=== PATIENT | male | born 1945 | race Caucasian/White ===

== ENCOUNTER 2016-10-23 13:32 | Inpatient (IN) | payer OTHER, MEDICARE ==
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
[2016-10-23] MEDS ORDERED: ASPIRIN 81 MG CHEWABLE TABLETS PO ONE (14:05)
[2016-10-23 14:29] LABS: BASOPHIL 0.7 % (0-2.0); MCH 31.9 pg (25.7-33.7); MCHC 33.1 g/dl (32.0-35.9); MEAN CELL VOLUME 96.5 fl (80-96); MEAN PLT VOLUME 8.4 fl (7.5-11.1); NEUTROPHILS 74.2 % (42.8-82.8); PLATELET COUNT 252 K/MM3 (134-434); RDW 13.3 % (11.9-15.9); WHITE BLOOD COUNT 17.9 K/mm3 (4.0-10.0)
[2016-10-23 14:42] LABS: INR 1.15 (0.82-1.09); PROTHROMBIN TIME (PATIENT) 12.7 SEC (9.98-11.88)
[2016-10-23] MEDS ORDERED: ASPIRIN 81 MG CHEWABLE TABLETS ONE (14:52)
[2016-10-23 15:02] LABS: ALBUMIN 3.9 g/dl (3.4-5.0); ANION GAP 13 (8-16); CALCIUM 9.4 mg/dL (8.5-10.1); CHOLESTEROL 148 mg/dL (50-200); CO2 23 mmol/L (21-32); CREATININE 1.9 mg/dL (0.7-1.3); MAGNESIUM 1.8 mg/dL (1.8-2.4); SGOT/AST 22 U/L (15-37); SGPT/ALT 22 U/L (12-78); TOT PROT 7.5 g/dl (6.4-8.2)
[2016-10-23 15:03] LABS: ALK PHOS 87 U/L (45-117); TROPONIN I < 0.02 ng/ml (0.00-0.05)
[2016-10-23 15:09] LABS: GLUCOSE,RANDOM 305 mg/dL (74-106)
[2016-10-23 15:19] LABS: LDL CHOLESTEROL (ONLY SJRH) 82 mg/dL (5-100)
[2016-10-23] MEDS ORDERED: ACETAMINOPHEN 1000 MG/100 ML VIAL (NON FORMULARY) IVPB ONE (16:09)
[2016-10-23 16:23] LABS: URINE APPEARANCE CLOUDY; URINE BILIRUBIN NEGATIVE (NEGATIVE); URINE COLOR YELLOW; URINE GLUCOSE (UA) 2+ (NEGATIVE); URINE KETONE NEGATIVE (NEGATIVE); URINE NITRITE NEGATIVE (NEGATIVE); URINE UROBILINOGEN NEGATIVE E.U./dl (0.2-1.0)
[2016-10-23 16:56] LABS: URINE BLOOD 1+ (NEGATIVE); URINE LEUK ESTERASE TRACE (NEGATIVE); URINE PROTEIN 3+ (NEGATIVE)
[2016-10-23 16:57] LABS: URINE BACTERIA RARE /hpf (NONE SEEN); URINE HYALINE CAST 8 /lpf; URINE MUCUS FEW; URINE RBC 2 /hpf (0-3); URINE WBC 22 /hpf (3-5)
[2016-10-23] MEDS ORDERED: ACETAMINOPHEN INJECTION 100 ML IVPB ONE (18:05)
[2016-10-23] MEDS ORDERED: LIDOCAINE HCL/PF 1% SDV 5ML VIAL ONE (18:33)
[2016-10-23] MEDS ORDERED: CEFTRIAXONE 2 GM in DEXTROSE 5%-WATER - 100 ML IVPB ONE (19:12)
[2016-10-23] MEDS ORDERED: CEFTRIAXONE 100 ML IVPB ONE (19:17)
[2016-10-23] MEDS ORDERED: SODIUM CHLORIDE 1,000 ML IV STA (19:31)
--- NOTE | 2016-10-23 19:50 | EKG ---
Test Reason : Blood Pressure : / mmHG Vent. Rate : 107 BPM Atrial Rate : 107 BPM P-R Int : 182 ms QRS Dur : 080 ms QT Int : 324 ms P-R-T Axes : 034 029 061 degrees QTc Int : 432 ms SINUS TACHYCARDIA INFERIOR ST ELEVATION, CONSIDER EARLY REPOLARIZATION, PERICARDITIS, OR INJURY KS INTERVAL DEPRESSED IN INFEROLATERAL LEADS WITH KS ELEVATION IN AVR, CONSIDER PERICARDITIS NO PREVIOUS ECGS AVAILABLE Confirmed by LORY LINDQUIST, JOHN ([id number]) on 10/23/2016 7:50:14 PM Referred By: Confirmed By:JOHN HENLEY MD
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
[2016-10-23 20:10] LABS: CSF COLOR COLORLESS
[2016-10-23 20:11] LABS: CSF APPEARANCE CLEAR; CSF RBC 3 /mm3
[2016-10-23 20:11] LABS: CSF APPEARANCE CLEAR; CSF COLOR COLORLESS; CSF RBC 12 /mm3
[2016-10-23 20:22] LABS: GLUCOSE,CSF 136 mg/dL (50-80)
[2016-10-23 22:54] LABS: TROPONIN I < 0.02 ng/ml (0.00-0.05)
[2016-10-23] MEDS ORDERED: INSULIN (NOVOLOG) ASPART 100 UNITS/ML 10ML VIAL ONE (23:24)
[2016-10-23] MEDS: INSULIN SLIDING SCALE (NOVOLOG) 1 VIAL SQ SCH (23:27)
[2016-10-24] MEDS ORDERED: SODIUM CHLORIDE 1,000 ML IV STA (01:00)
[2016-10-24 01:59] VITALS: BMI 24.8
[2016-10-24] MEDS ORDERED: PNEUMOC 13-VAL CONJ-DIP CRM/PF 0.5 ML DISP.SYRIN IM ONE (01:59)
[2016-10-24 03:56] LABS: TROPONIN I < 0.02 ng/ml (0.00-0.05)
[2016-10-24] MEDS: INSULIN SLIDING SCALE (NOVOLOG) 1 VIAL SQ SCH ×4 (06:26→21:05)
[2016-10-24 07:24] LABS: EOSINOPHIL 3.4 % (0-4.5); MCH 32.5 pg (25.7-33.7); MCHC 33.7 g/dl (32.0-35.9); MEAN CELL VOLUME 96.5 fl (80-96); MEAN PLT VOLUME 8.7 fl (7.5-11.1); NEUTROPHILS 59.9 % (42.8-82.8); PLATELET COUNT 224 K/MM3 (134-434); RDW 13.6 % (11.9-15.9); WHITE BLOOD COUNT 10.3 K/mm3 (4.0-10.0)
[2016-10-24 08:07] LABS: ANION GAP 8 (8-16); CALCIUM 8.6 mg/dL (8.5-10.1); CO2 26 mmol/L (21-32); GLUCOSE,RANDOM 144 mg/dL (74-106); MAGNESIUM 1.8 mg/dL (1.8-2.4); PHOSPHOROUS 4.1 mg/dL (2.5-4.9)
[2016-10-24] MEDS: CEFTRIAXONE 50 ML IVPB SCH (11:21)
[2016-10-24] MEDS: ASPIRIN 81 MG CHEWABLE TABLETS PO SCH (11:21)
--- NOTE | 2016-10-24 17:16 | PN ---
Physical Exam: SUBJECTIVE: Patient seen and examined. He says he is feeling better and got dizzy when he has transferring from the bed, but still Denies fever and chills. OBJECTIVE: Vital Signs Period Temp Pulse Resp BP Sys/Wilson Pulse Ox Last 24 Hr 98.3 F-98.9 F 65-76 18-179 119-152/57-69 97-98 PE Neuro: alert, awake, cn 2-12intact Pulm: CTAB CV: s1 s2 rrr no mrg Abd: s nt nd + bs Ext: warm no le edema skin: tattoos CBCD WBC 10.3 K/mm3 (4.0-10.0) H D 10/24/16 06:35 RBC 4.52 M/mm3 (4.00-5.60) 10/24/16 06:35 Hgb 14.7 GM/dL (11.7-16.9) 10/24/16 06:35 Hct 43.6 % (35.4-49) 10/24/16 06:35 MCV 96.5 fl (80-96) H 10/24/16 06:35 MCHC 33.7 g/dl (32.0-35.9) 10/24/16 06:35 RDW 13.6 % (11.9-15.9) 10/24/16 06:35 Plt Count 224 K/MM3 (134-434) 10/24/16 06:35 MPV 8.7 fl (7.5-11.1) 10/24/16 06:35 CMP Sodium 140 mmol/L (136-145) 10/24/16 06:35 Potassium 4.5 mmol/L (3.5-5.1) 10/24/16 06:35 Chloride 106 mmol/L (98-107) 10/24/16 06:35 Carbon Dioxide 26 mmol/L (21-32) 10/24/16 06:35 Anion Gap 8 (8-16) 10/24/16 06:35 BUN 20 mg/dL (7-18) H 10/24/16 06:35 Creatinine 1.0 mg/dL (0.7-1.3) D 10/24/16 06:35 Creat Clearance w eGFR 35.22 (>60) 10/23/16 14:15 Calcium 8.6 mg/dL (8.5-10.1) 10/24/16 06:35 Total Bilirubin 1.0 mg/dL (0.2-1.0) 10/23/16 14:15 AST 22 U/L (15-37) 10/23/16 14:15 ALT 22 U/L (12-78) 10/23/16 14:15 Alkaline Phosphatase 87 U/L (45-117) 10/23/16 14:15 Total Protein 7.5 g/dl (6.4-8.2) 10/23/16 14:15 Albumin 3.9 g/dl (3.4-5.0) 10/23/16 14:15 10/24/16 10/24/16 10/24/16 03:25 03:25 06:35 Hemoglobin A1c % Lactic Acid 1.6 Calcium 8.6 Phosphorus 4.1 Magnesium 1.8 Creatine Kinase 105 Troponin I < 0.02 10/24/16 06:35 Hemoglobin A1c % 8.0 H Active Medications Generic Name Dose Route Start Last Admin Trade Name Braulio PRN Reason Stop Dose Admin Aspirin 81 mg 10/24/16 10:00 10/24/16 11:21 Asa - PO 81 mg DAILY JOSE Administration Atorvastatin Calcium 40 mg 10/24/16 22:00 Lipitor - PO HS JOSE Ceftriaxone Sodium 50 mls @ 100 mls/hr 10/24/16 10:00 10/24/16 11:21 Rocephin 1gm Ivpb (Pre-Docked) IVPB 100 mls/hr DAILY JOSE Administration Insulin Aspart 1 vial 10/23/16 22:00 10/24/16 16:58 Novolog Vial Sliding Scale - SQ 4 units ACHS JOSE Administration Protocol Pneumococcal 13-Valent Conj Vacc 0.5 ml 10/24/16 01:59 10/24/16 07:31 Prevnar 13 Syringe - IM 10/24/16 02:00 Not Given .ONCE ONE Microbiology 10/23/16 15:57 Blood - Peripheral Venous Blood Culture - Preliminary NO GROWTH OBTAINED AFTER 24 HOURS, INCUBATION TO CONTINUE FOR 4 DAYS. 10/23/16 15:57 Blood - Peripheral Venous Blood Culture - Preliminary NO GROWTH OBTAINED AFTER 24 HOURS, INCUBATION TO CONTINUE FOR 4 DAYS. 10/23/16 19:15 Cerebral Spinal Fluid - Lumbar Puncture Gram Stain - Final 10/23/16 19:15 Cerebral Spinal Fluid - Lumbar Puncture CSF Culture - Preliminary Assessment: 70 year old male with HTN, HLD, DM II, forme ETOH abuse, admitted with lightheadedness, chest pain, and dizziness. Plan: 1. Sepsis due to UTI - Continue ceftrixone (day 2) - Urine cx pending - Blood cx negative - Lactic acid wnl 2. Lightheadedness/near syncope - Likely d/t sepsis - Carotid dopplers negative for sentosis - ECHO normal lv size/fxn, RV nml - CT head negative 3. Uncontrolled DM II - Hold PO antidiabetic - ISS, BGM ACHS - Will likely need insulin 4. Chest pain - Resolved, per pt intermittent musculoskeletal - r/o [place] serial trops negative 5. PEDRO - Resolved 6. HTN - Restart lisinopril 10mg daily 7. DVT ppx - Heparin sq Visit type - Emergency Visit Emergency Visit: Yes ED Registration Date: 10/23/16 Care time: The patient presented to the Emergency Department on the above date and was hospitalized for further evaluation of their emergent condition. - New Patient This patient is new to me today: Yes Date on this admission: 10/24/16 - Critical Care Critical Care patient: No
[2016-10-24] MEDS: SODIUM CHLORIDE 1,000 ML IV SCH (19:00)
[2016-10-24] MEDS ORDERED: INSULIN (NOVOLOG) ASPART 100 UNITS/ML 10ML VIAL ONE (20:34)
[2016-10-24] MEDS: HEPARIN NA (PORCINE) 5,000 UNITS/ML 1ML VIAL SQ SCH (21:03)
[2016-10-24] MEDS: ATORVASTATIN CA 40 MG TABLET (FP) PO SCH (21:04)
[2016-10-25] MEDS: SODIUM CHLORIDE 1,000 ML IV SCH ×2 (06:22→21:34)
[2016-10-25] MEDS: HEPARIN NA (PORCINE) 5,000 UNITS/ML 1ML VIAL SQ SCH ×3 (06:22→21:34)
[2016-10-25] MEDS: INSULIN SLIDING SCALE (NOVOLOG) 1 VIAL SQ SCH ×4 (06:24→21:35)
[2016-10-25] MEDS: LISINOPRIL 10 MG TABLET (FP) PO SCH (10:30)
[2016-10-25] MEDS: CEFTRIAXONE 50 ML IVPB SCH (10:30)
[2016-10-25] MEDS: ASPIRIN 81 MG CHEWABLE TABLETS PO SCH (10:30)
[2016-10-25 11:49] LABS: BASOPHIL 0.9 % (0-2.0); EOSINOPHIL 2.6 % (0-4.5); MCH 32.8 pg (25.7-33.7); MCHC 33.9 g/dl (32.0-35.9); MEAN CELL VOLUME 96.6 fl (80-96); MEAN PLT VOLUME 8.7 fl (7.5-11.1); NEUTROPHILS 63.8 % (42.8-82.8); PLATELET COUNT 219 K/MM3 (134-434); RDW 13.1 % (11.9-15.9); WHITE BLOOD COUNT 9.7 K/mm3 (4.0-10.0)
--- NOTE | 2016-10-25 18:37 | PN ---
Physical Exam: SUBJECTIVE: Patient seen and examined. He reports one episode this AM dizziness and blurry vision when reading the room board. He denies the room spinning. OBJECTIVE: Vital Signs Period Temp Pulse Resp BP Sys/Wilson Pulse Ox Last 24 Hr 97.5 F-99 F 63-71 20-20 130-157/60-76 96-97 PE Neuro: alert, awake, cn 2-12intact Pulm: CTAB CV: s1 s2 rrr no mrg Abd: s nt nd + bs Ext: warm no le edema Laboratory Results - last 24 hr 10/24/16 10/25/16 10/25/16 21:02 06:21 11:15 WBC 9.7 RBC 4.37 Hgb 14.3 Hct 42.2 MCV 96.6 H MCHC 33.9 RDW 13.1 Plt Count 219 MPV 8.7 Neutrophils % 63.8 Lymphocytes % 24.6 Monocytes % 8.1 Eosinophils % 2.6 Basophils % 0.9 POC Glucometer 202 175 Active Medications Generic Name Dose Route Start Last Admin Trade Name Braulio PRN Reason Stop Dose Admin Aspirin 81 mg 10/24/16 10:00 10/25/16 10:30 Asa - PO 81 mg DAILY JOSE Administration Atorvastatin Calcium 40 mg 10/24/16 22:00 10/24/16 21:04 Lipitor - PO 40 mg HS JOSE Administration Heparin Sodium (Porcine) 5,000 unit 10/24/16 22:00 10/25/16 14:08 Heparin - SQ 5,000 unit TID JOSE Administration Ceftriaxone Sodium 50 mls @ 100 mls/hr 10/24/16 10:00 10/25/16 10:30 Rocephin 1gm Ivpb (Pre-Docked) IVPB 100 mls/hr DAILY JOSE Administration Sodium Chloride 1,000 mls @ 83 mls/hr 10/24/16 17:45 10/25/16 06:22 Normal Saline - IV 83 mls/hr ASDIR JOSE Administration Insulin Aspart 1 vial 10/23/16 22:00 10/25/16 17:46 Novolog Vial Sliding Scale - SQ 4 units ACHS JOSE Administration Protocol Lisinopril 10 mg 10/25/16 10:00 10/25/16 10:30 Prinivil PO 10 mg DAILY JOSE Administration Imaging: - Carotid dopplers negative for sentosis - ECHO normal lv size/fxn, RV nml - CT head negative Assessment: 70 year old male with HTN, HLD, DM II, forme ETOH abuse, admitted with lightheadedness, chest pain, and dizziness. Plan: 1. Sepsis due to UTI - Continue ceftrixone (day 3) - Urine cx negative 2. Lightheadedness/near syncope - Orthostatics negative - Imaging negative - Likely d/t sepsis 3. Uncontrolled DM II - Hold PO antidiabetic - ISS, BGM ACHS - Will likely need insulin 4. Chest pain - Resolved, per pt intermittent musculoskeletal - r/o [place] serial trops negative 5. PEDRO - Resolved 6. HTN - BP Stable - Continue Lisinopril 10mg daily 7. DVT ppx - Heparin sq Visit type - Emergency Visit Emergency Visit: Yes ED Registration Date: 10/23/16 Care time: The patient presented to the Emergency Department on the above date and was hospitalized for further evaluation of their emergent condition. - New Patient This patient is new to me today: No - Critical Care Critical Care patient: No
[2016-10-25] MEDS ORDERED: INSULIN (NOVOLOG) ASPART 100 UNITS/ML 10ML VIAL ONE (19:53)
[2016-10-25] MEDS: ATORVASTATIN CA 40 MG TABLET (FP) PO SCH (21:35)
[2016-10-26] MEDS: HEPARIN NA (PORCINE) 5,000 UNITS/ML 1ML VIAL SQ SCH (05:23)
[2016-10-26] MEDS: INSULIN SLIDING SCALE (NOVOLOG) 1 VIAL SQ SCH (06:23)
[2016-10-26 07:29] LABS: BASOPHIL 1.4 % (0-2.0); EOSINOPHIL 4.3 % (0-4.5); MCH 32.9 pg (25.7-33.7); MCHC 34.4 g/dl (32.0-35.9); MEAN CELL VOLUME 95.6 fl (80-96); MEAN PLT VOLUME 9.3 fl (7.5-11.1); NEUTROPHILS 56.7 % (42.8-82.8); PLATELET COUNT 214 K/MM3 (134-434); WHITE BLOOD COUNT 10.6 K/mm3 (4.0-10.0)
[2016-10-26 08:05] LABS: ANION GAP 8 (8-16); CALCIUM 8.6 mg/dL (8.5-10.1); CO2 25 mmol/L (21-32); CREATININE 0.7 mg/dL (0.7-1.3); GLUCOSE,RANDOM 149 mg/dL (74-106)
[2016-10-26] MEDS ORDERED: PT OWN MED DRAWER 7, Y5N ONE (09:09)
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
[2016-10-26] MEDS: CEFTRIAXONE 50 ML IVPB SCH (09:20)
[2016-10-26] MEDS: LISINOPRIL 10 MG TABLET (FP) PO SCH (09:22)
[2016-10-26] MEDS: ASPIRIN 81 MG CHEWABLE TABLETS PO SCH (09:22)
--- NOTE | 2016-10-26 10:41 | EKG ---
Test Reason : Blood Pressure : / mmHG Vent. Rate : 090 BPM Atrial Rate : 090 BPM P-R Int : 198 ms QRS Dur : 082 ms QT Int : 356 ms P-R-T Axes : 032 014 053 degrees QTc Int : 435 ms NORMAL SINUS RHYTHM NORMAL ECG WHEN COMPARED WITH ECG OF 23-OCT-2016 13:54, NO SIGNIFICANT CHANGE WAS FOUND Confirmed by ROSANGELA MAYO MD ([id number]) on 10/26/2016 10:41:40 AM Referred By: Confirmed By:ROSANGELA MAYO MD
[2016-10-26 17:27] VITALS: BP 143/57; PULSE 72; TEMP 98.9
== END 2016-10-26 12:07 | disposition home or self-care (01) | DRG 872 ==
LOC: JER 13:32 → INTOOBSV 20:39 → UNDOADMOB 20:39 → JERBED 20:39 → UNDOADMIN 20:43 → JERBED 21:07 → OBSVTOIN 23:12 → J5S 10-24 01:07 → J7W 10-24 22:30
PROVIDERS: ADMIT Internal Medicine; ATTEND Nurse Practitioner Acute Care
PROC: 009U3ZX Drainage of Spinal Canal, Percutaneous Approach, Diagnostic (ICD-10-PCS; principal; 2016-10-23)
DX: A41.9 Sepsis, unspecified organism (principal); N39.0 Urinary tract infection, site not specified; S06.9X1A Unspecified intracranial injury with loss of consciousness of 30 minutes or less, initial encounter; N17.9 Acute kidney failure, unspecified; R07.9 Chest pain, unspecified; F07.81 Postconcussional syndrome; M54.2 Cervicalgia; V43.52XA Car driver injured in collision with other type car in traffic accident, initial encounter; Y92.410 Unspecified street and highway as the place of occurrence of the external cause; E11.65 Type 2 diabetes mellitus with hyperglycemia; Z79.84 Long term (current) use of oral hypoglycemic drugs; G44.52 New daily persistent headache (NDPH); D72.829 Elevated white blood cell count, unspecified; I10 Essential (primary) hypertension; E78.5 Hyperlipidemia, unspecified; R42 Dizziness and giddiness; F17.210 Nicotine dependence, cigarettes, uncomplicated
CPT/HCPCS: 36415; 70450-TC; 71010-TC; 80048; 80053; 80061; 81003; 81015; 82550; 82945; 83036; 83605; 83721; 83735; 83880; 84100; 84157; 84484; 85025; 85610; 87040; 87070; 87086; 87205; 89050; 93005; 93010; 93306-TC; 93880-TC; 99285-25; G0378; J1644